=== PATIENT | female | born 1990 | race Caucasian/White ===

== ENCOUNTER 2016-09-21 15:00 | Emergency (ER) | payer MEDICAID, OTHER ==
[~2016-09-21] VITALS: Ht 162.6 cm; Wt 70.4 kg
[~2016-09-21 15:00] MED LIST: NOCURR
[2016-09-21] MEDS ORDERED: ONDA4 PO (15:23)
[2016-09-21] MEDS ORDERED: MECL-111 PO (15:23)
[2016-09-21 15:46] LABS: APPEARANCE,URINE TURBID (CLEAR); GLUCOSE, URINE (UA) NEGATIVE (NEGATIVE); KETONES,URINE NEGATIVE (NEGATIVE); LEUKOCYTE ESTERASE ,URINE NEGATIVE (NEGATIVE); OCCULT BLOOD,URINE NEGATIVE (NEGATIVE); PROTEIN,URINE TRACE (NEGATIVE)
[2016-09-21 16:06] LABS: RBC,URINE None Seen /HPF (0-2)
[2016-09-21 16:07] LABS: AMORPHOUS SEDIMENT,UR Moderate /LPF (None Seen); WBC,URINE 0-2 /HPF (0-5)
[2016-09-21] MEDS ORDERED: MECLIZINE HCL 25 MG TABLET PO ONE (16:15)
[2016-09-21] MEDS ORDERED: ONDANSETRON HCL 4 MG TABLET PO ONE (16:15)
[2016-09-21 16:27] VITALS: BP 148/91
== END 2016-09-21 17:27 | disposition home or self-care (01) ==
LOC: EMS 15:01
DX: R42 Dizziness and giddiness (principal)
CPT/HCPCS: 81001; 84703; 99284; Q0162

== ENCOUNTER 2017-12-25 16:07 | Inpatient (IN) | payer MEDICAID ==
[~2017-12-25] VITALS: Ht 162.6 cm; Wt 88.1 kg
[~2017-12-25 16:07] MED LIST changes: +MECL-111 PO; -NOCURR; +ONDA4 PO
[2017-12-25] MEDS ORDERED: PARO-37 PO (16:36)
[2017-12-25 17:17] LABS: BASOPHILS % (AUTO) 0.3 % (0.0-2.0); EOSINOPHILS % (AUTO) 0.1 % (1.0-6.0); HEMATOCRIT 36.7 % (36-46); HEMOGLOBIN 12.3 g/dL (12.0-16.0); LYMPHOCYTES # (AUTO) 0.9 K/uL (1.0-4.8); LYMPHOCYTES % (AUTO) 14.8 % (22.0-44.0); MEAN CORPUSCULAR HEMOGLOBIN 28.2 pg (26.0-34.0); MEAN CORPUSCULAR HGB CONC 33.4 G/dL (31.0-37.0); MEAN CORPUSCULAR VOLUME 84 fL (80-100); MONOCYTES # (AUTO) 0.4 K/uL (0.1-1.0); MONOCYTES % (AUTO) 6.7 % (2.0-9.0); NEUTROPHILS # (AUTO) 4.5 K/uL (1.8-7.7); NEUTROPHILS % (AUTO) 78.1 % (40.0-70.0); PLATELET COUNT (AUTO) 254 K/uL (150-450); RED BLOOD CELL COUNT(AUTO) 4.35 MIL/uL (4.00-5.20); RED CELL DISTRIBUTION WIDTH 13.8 % (11.5-14.5)
[2017-12-25 17:21] LABS: AMPHET/METH SCREEN,URINE NEGATIVE (NEGATIVE); BARBITURATE SCREEN, URINE NEGATIVE (NEGATIVE); BENZODIAZEPINES SCREEN,URINE NEGATIVE (NEGATIVE); CANNABINOID SCREEN,URINE NEGATIVE (NEGATIVE); COCAINE SCREEN,URINE NEGATIVE (NEGATIVE); METHADONE SCREEN, URINE NEGATIVE (NEGATIVE); OPIATE SCREEN,URINE NEGATIVE (NEGATIVE); PHENCYCLIDINE SCREEN,URINE NEGATIVE (NEGATIVE)
[2017-12-25 17:32] LABS: ANION GAP 8 mmol/L (8-16); CALCIUM, TOTAL 8.8 mg/dL (8.8-10.5); CARBON DIOXIDE 26 mmol/L (22-29); CHLORIDE 105 mmol/L (98-107); CREATININE 0.55 mg/dL (0.60-1.30); GLOMERULAR FILTR. RATE CALC > 60 mL/min (>60); GLUCOSE,RANDOM 103 mg/dL (70-110); POTASSIUM 4.5 mmol/L (3.5-5.1); SODIUM SERUM 139 mmol/L (136-145); UREA NITROGEN, BLOOD 7 mg/dL (7-18)
[2017-12-25 17:39] LABS: ALANINE AMINOTRANSFERASE 37 U/L (12-78); ALBUMIN 3.9 g/dL (3.4-5.0); ALKALINE PHOSPHATASE 67 U/L (46-116); ASPARTATE AMINOTRANSFERASE 20 U/L (15-37); BILIRUBIN,TOTAL 0.4 mg/dL (0.1-1.0); TOTAL PROTEIN, SERUM 7.8 g/dL (6.4-8.2)
[2017-12-25] MEDS ORDERED: HALOPERIDOL 5 MG TABLET PO PRN (19:30)
[2017-12-25] MEDS ORDERED: ZOLPIDEM TARTRATE 10 MG TABLET PO PRN (19:30)
[2017-12-25] MEDS ORDERED: ACETAMINOPHEN 500 MG TABLET PO ONE (19:45)
[2017-12-26 08:10] LABS: CHOL/HDL RATIO 3.7 (3.9-5.7); CHOLESTEROL 163 mg/dL (131-200); FREE T4 (FREE THYROXINE) 0.83 ng/dL (0.76-1.46); HCG,QUANTITATIVE < 1 mIU/mL (0-6); HDL CHOLESTEROL 44 mg/dL (40-60); LDL CHOL (CALC.) 103 mg/dL (0-130); THYROID STIMULATING HORMONE 1.55 uIU/mL (0.36-3.74); TRIGLYCERIDES 78 mg/dL (15-150)
[2017-12-26 13:26] VITALS: BP 133/90
[2017-12-26] MEDS: LORazepam 2 MG TABLET PO PRN (16:17)
[2017-12-26 20:57] VITALS: BP 152/98
[2017-12-27 08:50] VITALS: BP 131/89
[2017-12-27] MEDS ORDERED: IBUPROFEN 400 MG TABLET PO PRN ×2 (15:45→23:00)
[2017-12-27 19:45] VITALS: BP 137/83
[2017-12-27] MEDS ORDERED: ACETAMINOPHEN 325 MG TABLET PO PRN (23:00)
[2017-12-28 00:15] VITALS: BP 129/81
[2017-12-28] MEDS: LORazepam 2 MG TABLET PO PRN (00:26)
[2017-12-28 06:52] LABS: THYROID STIMULATING HORMONE 4.88 uIU/mL (0.36-3.74)
[2017-12-28 08:42] VITALS: BP 141/88
[2017-12-28] MEDS: ONDANSETRON HCL 4 MG TABLET PO SCH ×2 (09:00→13:00)
[2017-12-28] MEDS ORDERED: PARoxetine HCL 20 MG TABLET PO SCH (09:00)
[2017-12-28] MEDS ORDERED: MECLIZINE HCL 25 MG TABLET PO SCH (09:00)
== END 2017-12-28 15:20 | disposition home or self-care (01) | DRG 751 ==
LOC: EMS 16:08 → 3EI 12-26 12:36
PROVIDERS: ADMIT Psychiatry & Neurology Psychiatry; ATTEND Psychiatry & Neurology Psychiatry
DX: F33.2 Major depressive disorder, recurrent severe without psychotic features (principal); R45.851 Suicidal ideations; R45.850 Homicidal ideations; I10 Essential (primary) hypertension; R42 Dizziness and giddiness; Z79.899 Other long term (current) drug therapy
CPT/HCPCS: 83036; 84439; 84443; 99285; G0480; Q0162

== ENCOUNTER 2019-02-02 12:36 | Emergency (ER) | payer SELFPAY ==
[~2019-02-02] VITALS: Ht 162.6 cm; Wt 72.7 kg
[~2019-02-02 12:36] MED LIST changes: +PARO-37 PO
[2019-02-02 13:43] LABS: BASOPHILS % (AUTO) 0.4 % (0.0-2.0); EOSINOPHILS % (AUTO) 0 % (1.0-6.0); HEMATOCRIT 42.3 % (36-46); HEMOGLOBIN 13.7 g/dL (12.0-16.0); LYMPHOCYTES # (AUTO) 1.9 K/uL (1.0-4.8); LYMPHOCYTES % (AUTO) 19.5 % (22.0-44.0); MEAN CORPUSCULAR HEMOGLOBIN 28.1 pg (26.0-34.0); MEAN CORPUSCULAR HGB CONC 32.4 G/dL (31.0-37.0); MEAN CORPUSCULAR VOLUME 87 fL (80-100); MONOCYTES # (AUTO) 0.5 K/uL (0.1-1.0); MONOCYTES % (AUTO) 5.2 % (2.0-9.0); NEUTROPHILS # (AUTO) 7.3 K/uL (1.8-7.7); NEUTROPHILS % (AUTO) 74.9 % (40.0-70.0); PLATELET COUNT (AUTO) 341 K/uL (150-450); RED BLOOD CELL COUNT(AUTO) 4.89 MIL/uL (4.00-5.20)
[2019-02-02 13:56] LABS: ANION GAP 11 mmol/L (8-16); CALCIUM, TOTAL 10.1 mg/dL (8.8-10.5); CARBON DIOXIDE 27 mmol/L (22-29); CHLORIDE 102 mmol/L (98-107); CREATININE 0.72 mg/dL (0.60-1.30); GLOMERULAR FILTR. RATE CALC > 60 mL/min (>60); GLUCOSE,RANDOM 108 mg/dL (70-110); POTASSIUM 3.7 mmol/L (3.5-5.1); SODIUM SERUM 140 mmol/L (136-145); UREA NITROGEN, BLOOD 6 mg/dL (7-18)
[2019-02-02 14:07] LABS: ALANINE AMINOTRANSFERASE 28 U/L (12-78); ALBUMIN 4.2 g/dL (3.4-5.0); ALKALINE PHOSPHATASE 67 U/L (46-116); ASPARTATE AMINOTRANSFERASE 15 U/L (15-37); BILIRUBIN,TOTAL 0.5 mg/dL (0.1-1.0); HCG,QUANTITATIVE < 1 mIU/mL (0-6); TOTAL PROTEIN, SERUM 8.2 g/dL (6.4-8.2)
[2019-02-02] MEDS ORDERED: SODIUM CHLORIDE 0.9% 1,000 ML IV ONE (16:45)
[2019-02-02] MEDS ORDERED: MECLIZINE HCL 25 MG TABLET PO ONE (16:45)
[2019-02-02 17:07] VITALS: BP 148/86
== END 2019-02-02 18:21 | disposition home or self-care (01) ==
LOC: EMS 12:39
DX: R42 Dizziness and giddiness (principal); R11.0 Nausea; F32.9 Major depressive disorder, single episode, unspecified
CPT/HCPCS: 36415; 80053; 84702; 85025; 96360; 99283; J7030